=== PATIENT | male | born 1970 | race Hispanic/Latino ===

== ENCOUNTER 2017-08-01 08:36 | Day surgery (SDC) | payer BC ==
[~2017-08-01] VITALS: Ht 177.8 cm; Wt 98.3 kg
[~2017-08-01 08:36] MED LIST: CYAN500 PO; DICY10 PO; FOLI1TAB15 PO; FURO20TA4 PO; LACT10SO8 PO; OMEP40CA37 PO; PROP20TA7 PO; RIFA550T PO; SITA50TA PO; SODIUM CHLORIDE 0.9% 1000ML 1,000 ML IV ONE; SPIR50TA5 PO
[2017-08-01 09:07] VITALS: BP 87/44
[2017-08-01] MEDS ORDERED: PROPOFOL 10 MG/ML 20ML VIAL IV ONE (10:12)
[2017-08-01] MEDS ORDERED: FENTANYL CITRATE PF 50 MCG/1 ML 2ML VIAL ONE (10:13)
[2017-08-01 10:20] VITALS: BP 91/42
== END 2017-08-01 10:50 | disposition home or self-care (01) ==
LOC: DAH 08:36 → ENDO 08:36
PROVIDERS: ATTEND Internal Medicine
DX: I85.00 Esophageal varices without bleeding (principal); K31.89 Other diseases of stomach and duodenum; K29.50 Unspecified chronic gastritis without bleeding; Z79.84 Long term (current) use of oral hypoglycemic drugs; Z79.899 Other long term (current) drug therapy; K74.60 Unspecified cirrhosis of liver; I10 Essential (primary) hypertension; E11.9 Type 2 diabetes mellitus without complications; Z82.49 Family history of ischemic heart disease and other diseases of the circulatory system
CPT/HCPCS: 43239; 82948 ×2; A4606; J2704; J3010; J7030 ×2

== ENCOUNTER 2017-11-30 10:49 | Emergency (ER) | payer BC ==
[~2017-11-30 10:49] MED LIST changes: -SODIUM CHLORIDE 0.9% 1000ML 1,000 ML IV ONE
[2017-11-30] MEDS ORDERED: IBUPROFEN 600 MG TABLET ONE (11:16)
== END 2017-11-30 12:27 | disposition home or self-care (01) ==
LOC: EDH 10:49
DX: B34.9 Viral infection, unspecified (principal); E11.9 Type 2 diabetes mellitus without complications; I10 Essential (primary) hypertension; K74.60 Unspecified cirrhosis of liver; Z98.890 Other specified postprocedural states; Z87.891 Personal history of nicotine dependence
CPT/HCPCS: 87804

== ENCOUNTER 2018-03-16 16:42 | Emergency (ER) | payer BC ==
[2018-03-16 17:15] LABS: BASOPHILS % (AUTO) 0.6 % (0.0-5.0); EOSINOPHILS % (AUTO) 3.8 % (0.0-8.0); HEMATOCRIT 35.2 % (42-54); LYMPHOCYTES % (AUTO) 20.3 % (21.0-51.0); MEAN CORPUSCULAR HEMOGLOBIN 30.9 pg (27.0-33.0); MEAN CORPUSCULAR HGB CONC 34.5 g/dL (32.0-36.0); MEAN CORPUSCULAR VOLUME 89.5 fL (79-99); MONOCYTES % (AUTO) 8.6 % (3.0-13.0); NEUTROPHILS % (AUTO) 66.7 % (40.0-77.0); PLATELET COUNT (AUTO) 45 K/uL (130-400); RED BLOOD CELL COUNT(AUTO) 3.93 MIL/uL (4.50-6.20)
[2018-03-16 17:16] LABS: APPEARANCE,URINE Clear (CLEAR); BILIRUBIN,URINE Negative (NEGATIVE); COLOR,URINE Yellow (YELLOW); GLUCOSE, URINE (UA) 500 mg/dL (NEGATIVE); KETONES,URINE Negative (NEGATIVE); LEUKOCYTE ESTERASE ,URINE Negative (NEGATIVE); NITRATE,URINE Negative (NEGATIVE); OCCULT BLOOD,URINE Negative (NEGATIVE); PH,URINE 5.5 (5.0-8.0); PROTEIN,URINE Negative (NEGATIVE); UROBILINOGEN,URINE 0.2 mg/dL (0.2-1.0)
[2018-03-16 17:24] LABS: AMPHET/METH SCREEN,URINE NEGATIVE (NEGATIVE); BARBITURATE SCREEN, URINE NEGATIVE (NEGATIVE); BENZODIAZEPINES SCREEN,URINE NEGATIVE (NEGATIVE); CANNABINOID SCREEN,URINE NEGATIVE (NEGATIVE); COCAINE SCREEN,URINE NEGATIVE (NEGATIVE); OPIATE SCREEN,URINE NEGATIVE (NEGATIVE); PHENCYCLIDINE SCREEN,URINE NEGATIVE (NEGATIVE)
[2018-03-16 17:25] LABS: CREATININE 1.1 mg/dL (0.5-1.5); POTASSIUM 3.9 mmol/L (3.5-5.1)
[2018-03-16 17:28] LABS: INR 1.11 (0.85-1.15); PARTIAL THROMBOPLASTIN TIME 32.2 SEC (26.3-35.5); PROTHROMBIN TIME 11.6 SEC (9.6-11.6)
[2018-03-16 17:32] LABS: ALBUMIN 2.4 g/dL (3.5-5.0); BILIRUBIN,TOTAL 1.8 mg/dL (0.2-1.0); TOTAL PROTEIN, SERUM 6.6 g/dL (6.0-8.3)
== END 2018-03-16 19:12 | disposition home or self-care (01) ==
LOC: EDH 16:42
DX: R42 Dizziness and giddiness (principal); R20.2 Paresthesia of skin; E11.9 Type 2 diabetes mellitus without complications; I10 Essential (primary) hypertension; Z87.891 Personal history of nicotine dependence; Z85.05 Personal history of malignant neoplasm of liver
CPT/HCPCS: 36415; 71045; 80053; 80305; 81003; 82550; 85025; 85610; 85730; 93005

== ENCOUNTER 2018-05-04 01:14 | Emergency (ER) | payer BC ==
[2018-05-04 01:53] LABS: BASOPHILS % (AUTO) 0.5 % (0.0-5.0); EOSINOPHILS % (AUTO) 4.6 % (0.0-8.0); HEMATOCRIT 36.4 % (42-54); LYMPHOCYTES % (AUTO) 18.4 % (21.0-51.0); MEAN CORPUSCULAR HEMOGLOBIN 31.1 pg (27.0-33.0); MONOCYTES % (AUTO) 10.3 % (3.0-13.0); NEUTROPHILS % (AUTO) 66.2 % (40.0-77.0); NUCLEATED RED BLOOD CELLS 0.1 % (0.0-0.19); PLATELET COUNT (AUTO) 72 K/uL (130-400); RED BLOOD CELL COUNT(AUTO) 4.09 MIL/uL (4.50-6.20); RED CELL DISTRIBUTION WIDTH 13.3 % (11.0-15.5); WHITE BLOOD COUNT (AUTO) 4.3 K/uL (4.8-10.8)
[2018-05-04 01:55] LABS: APPEARANCE,URINE Clear (CLEAR); BILIRUBIN,URINE Negative (NEGATIVE); COLOR,URINE Yellow (YELLOW); GLUCOSE, URINE (UA) >=1000 mg/dL (NEGATIVE); KETONES,URINE Negative (NEGATIVE); LEUKOCYTE ESTERASE ,URINE Negative (NEGATIVE); NITRATE,URINE Negative (NEGATIVE); OCCULT BLOOD,URINE Negative (NEGATIVE); PH,URINE 6.5 (5.0-8.0); PROTEIN,URINE Negative (NEGATIVE); UROBILINOGEN,URINE 0.2 mg/dL (0.2-1.0)
[2018-05-04] MEDS ORDERED: INSULIN HUMULIN R 100 UNIT/ML 3ML ONE ×2 (01:58→03:04)
[2018-05-04 02:00] LABS: BACTERIA,URINE None Seen /HPF (None Seen); RBC,URINE None Seen /HPF (0-1); SQUAMOUS EPITHELIAL CELL,UR Rare /HPF (0-2); WBC,URINE None Seen /HPF (0-1); YEAST,URINE BUDDING None Seen /HPF (None Seen)
[2018-05-04 02:08] LABS: ALBUMIN 2.4 g/dL (3.5-5.0); BILIRUBIN,TOTAL 1.5 mg/dL (0.2-1.0); CREATININE 1.1 mg/dL (0.5-1.5); POTASSIUM 4.4 mmol/L (3.5-5.1); TOTAL PROTEIN, SERUM 6.8 g/dL (6.0-8.3)
== END 2018-05-04 02:31 | disposition home or self-care (01) ==
LOC: EDH 01:14
DX: E11.65 Type 2 diabetes mellitus with hyperglycemia (principal); K74.60 Unspecified cirrhosis of liver; I10 Essential (primary) hypertension; Z85.05 Personal history of malignant neoplasm of liver
CPT/HCPCS: 36415; 80053; 81001; 82948 ×2; 85025; 96361; 96374; 96376; 99285; J1815 ×2

== ENCOUNTER → 2018-05-14 | Outpatient (CLI) | payer BC | END | disposition home or self-care (01) | LOC: RAH 08:51 | PROVIDERS: ATTEND Internal Medicine Gastroenterology | DX: K74.60 Unspecified cirrhosis of liver (principal) | CPT/HCPCS: 76700; 93975 ==

== ENCOUNTER 2018-06-12 19:00 | Emergency (ER) | payer BC ==
[2018-06-12 19:36] LABS: APPEARANCE,URINE Clear (CLEAR); BILIRUBIN,URINE Large (NEGATIVE); GLUCOSE, URINE (UA) TRACE mg/dL (NEGATIVE); KETONES,URINE Negative (NEGATIVE); LEUKOCYTE ESTERASE ,URINE Small (NEGATIVE); NITRATE,URINE Positive (NEGATIVE); OCCULT BLOOD,URINE Negative (NEGATIVE); PH,URINE 5.5 (5.0-8.0); PROTEIN,URINE Negative (NEGATIVE)
[2018-06-12 19:37] LABS: COLOR,URINE AMBER (YELLOW)
[2018-06-12 19:41] LABS: EOSINOPHILS % (AUTO) 3.2 % (0.0-8.0); HEMATOCRIT 36.1 % (42-54); LYMPHOCYTES % (AUTO) 14.9 % (21.0-51.0); MEAN CORPUSCULAR HEMOGLOBIN 31.2 pg (27.0-33.0); MEAN CORPUSCULAR HGB CONC 34.6 g/dL (32.0-36.0); MEAN CORPUSCULAR VOLUME 90.1 fL (79-99); MONOCYTES % (AUTO) 11.5 % (3.0-13.0); NEUTROPHILS % (AUTO) 69.4 % (40.0-77.0); NUCLEATED RED BLOOD CELLS 0.1 % (0.0-0.19); PLATELET COUNT (AUTO) 49 K/uL (130-400); RED CELL DISTRIBUTION WIDTH 15.1 % (11.0-15.5); WHITE BLOOD COUNT (AUTO) 5.4 K/uL (4.8-10.8)
[2018-06-12 19:55] LABS: INR 1.15 (0.85-1.15); PARTIAL THROMBOPLASTIN TIME 30.1 SEC (26.3-35.5)
[2018-06-12 19:57] LABS: BACTERIA,URINE Few /HPF (None Seen); RBC,URINE None Seen /HPF (0-1); SQUAMOUS EPITHELIAL CELL,UR None Seen /HPF (0-2); WBC,URINE 0-1 /HPF (0-1)
[2018-06-12] MEDS ORDERED: ONDANSETRON HCL 4 MG/2 ML VIAL ONE (20:18)
[2018-06-12] MEDS ORDERED: MAG HYDROX/AL HYDROX/SIMETH ES 30 ML SUSP UDCUP ONE (20:18)
[2018-06-12] MEDS ORDERED: MORPHINE SULFATE 2 MG/ML 1ML SYG ONE (20:18)
[2018-06-12] MEDS ORDERED: LIDOCAINE HCL 2% VISCOUS 15 ML UDCUP ONE (20:18)
[2018-06-12] MEDS ORDERED: FAMOTIDINE/PF 20 MG/2 ML VIAL IV ONE (20:19)
[2018-06-12 20:25] LABS: B-TYPE NATRIURETIC PEPTIDE 25 pg/mL (0-100)
[2018-06-12 20:29] LABS: CREATININE 0.8 mg/dL (0.5-1.5)
[2018-06-12 20:34] LABS: BILIRUBIN,TOTAL 11.7 mg/dL (0.2-1.0); TOTAL PROTEIN, SERUM 5.6 g/dL (6.0-8.3)
[2018-06-12] MEDS ORDERED: CEFTRIAXONE SODIUM 1 GM ONE (21:05)
== END 2018-06-12 21:28 | disposition home or self-care (01) ==
LOC: EDH 19:00
DX: K29.00 Acute gastritis without bleeding (principal); N39.0 Urinary tract infection, site not specified; E11.9 Type 2 diabetes mellitus without complications; I10 Essential (primary) hypertension; Z87.891 Personal history of nicotine dependence; Z85.05 Personal history of malignant neoplasm of liver
CPT/HCPCS: 36415; 71045; 80053; 81001; 83605; 83690; 83880; 84484; 85025; 85610; 85730; 93005; 96361; 96374; 96375; 99285; J0696; J2405; J3490

== ENCOUNTER 2018-06-17 11:40 | Emergency (ER) | payer BC ==
[2018-06-17 12:53] LABS: BASOPHILS % (AUTO) 0.7 % (0.0-5.0); EOSINOPHILS % (AUTO) 3.8 % (0.0-8.0); HEMATOCRIT 37.8 % (42-54); LYMPHOCYTES % (AUTO) 11.2 % (21.0-51.0); MEAN CORPUSCULAR HGB CONC 35.3 g/dL (32.0-36.0); MEAN CORPUSCULAR VOLUME 90.8 fL (79-99); NEUTROPHILS % (AUTO) 77.3 % (40.0-77.0); PLATELET COUNT (AUTO) 45 K/uL (130-400); RED BLOOD CELL COUNT(AUTO) 4.16 MIL/uL (4.50-6.20); RED CELL DISTRIBUTION WIDTH 15.9 % (11.0-15.5); WHITE BLOOD COUNT (AUTO) 5.1 K/uL (4.8-10.8)
[2018-06-17 12:59] LABS: CREATININE 0.8 mg/dL (0.5-1.5); POTASSIUM 4.1 mmol/L (3.5-5.1)
[2018-06-17 13:14] LABS: ALBUMIN 2.4 g/dL (3.5-5.0); TOTAL PROTEIN, SERUM 6.6 g/dL (6.0-8.3)
[2018-06-17 13:16] LABS: BILIRUBIN,TOTAL 21.2 mg/dL (0.2-1.0)
[2018-06-17 13:17] LABS: APPEARANCE,URINE CLEAR (CLEAR); BILIRUBIN,URINE LARGE (NEGATIVE); COLOR,URINE BROWN (YELLOW); GLUCOSE, URINE (UA) 100 mg/dL (NEGATIVE); KETONES,URINE 5 mg/dL (NEGATIVE); LEUKOCYTE ESTERASE ,URINE TRACE (NEGATIVE); NITRATE,URINE NEGATIVE (NEGATIVE); OCCULT BLOOD,URINE TRACE-LYSED (NEGATIVE); PH,URINE 6.5 (5.0-8.0); PROTEIN,URINE 30 mg/dL (NEGATIVE)
[2018-06-17 13:25] LABS: AMPHET/METH SCREEN,URINE NEGATIVE (NEGATIVE); BARBITURATE SCREEN, URINE NEGATIVE (NEGATIVE); BENZODIAZEPINES SCREEN,URINE NEGATIVE (NEGATIVE); CANNABINOID SCREEN,URINE NEGATIVE (NEGATIVE); COCAINE SCREEN,URINE NEGATIVE (NEGATIVE); OPIATE SCREEN,URINE NEGATIVE (NEGATIVE); PHENCYCLIDINE SCREEN,URINE NEGATIVE (NEGATIVE)
[2018-06-17 13:28] LABS: BACTERIA,URINE Few /HPF (None Seen); COARSE GRANULAR CASTS,URINE 0-2 /LPF (None Seen); HYALINE CASTS, URINE 0-1 /LPF (0-1 /LPF); MUCUS,URINE Moderate LPF (None Seen); RBC,URINE 0-1 /HPF (0-1); WBC,URINE 0-1 /HPF (0-1)
[2018-06-17 15:30] LABS: INR 1.15 (0.85-1.15); PARTIAL THROMBOPLASTIN TIME 34.8 SEC (26.3-35.5)
== END 2018-06-17 18:09 | disposition home or self-care (01) ==
LOC: EDH 11:40
DX: C22.0 Liver cell carcinoma (principal); E80.6 Other disorders of bilirubin metabolism; E11.9 Type 2 diabetes mellitus without complications; I10 Essential (primary) hypertension
CPT/HCPCS: 36415; 80053; 80305; 81001; 82140; 83690; 85025; 85610; 85730; 87040; 87088

== ENCOUNTER 2018-08-22 20:03 | Emergency (ER) | payer BC, OTHER ==
[~2018-08-22 20:03] MED LIST changes: -CYAN500 PO; +CYAN500T4 PO
[2018-08-22 20:41] LABS: APPEARANCE,URINE Clear (CLEAR); BILIRUBIN,URINE Small (NEGATIVE); COLOR,URINE Dark Yellow (YELLOW); GLUCOSE, URINE (UA) Negative (NEGATIVE); KETONES,URINE Trace mg/dL (NEGATIVE); LEUKOCYTE ESTERASE ,URINE Trace (NEGATIVE); NITRATE,URINE Negative (NEGATIVE); OCCULT BLOOD,URINE Negative (NEGATIVE); PROTEIN,URINE POS 1+ mg/dL (NEGATIVE)
[2018-08-22 20:41] LABS: BASOPHILS % (AUTO) 0.9 % (0.0-5.0); HEMATOCRIT 32.6 % (42-54); LYMPHOCYTES % (AUTO) 17.7 % (21.0-51.0); MEAN CORPUSCULAR HEMOGLOBIN 28.8 pg (27.0-33.0); MEAN CORPUSCULAR HGB CONC 33.2 g/dL (32.0-36.0); MEAN CORPUSCULAR VOLUME 86.9 fL (79-99); MONOCYTES % (AUTO) 5.2 % (3.0-13.0); NEUTROPHILS % (AUTO) 74.2 % (40.0-77.0); NUCLEATED RED BLOOD CELLS 0.1 % (0.0-0.19); PLATELET COUNT (AUTO) 164 K/uL (130-400); RED BLOOD CELL COUNT(AUTO) 3.75 MIL/uL (4.50-6.20); RED CELL DISTRIBUTION WIDTH 15.8 % (11.0-15.5)
[2018-08-22 21:01] LABS: BACTERIA,URINE Rare /HPF (None Seen); RBC,URINE None Seen /HPF (0-1); WBC,URINE 0-1 /HPF (0-1)
[2018-08-22 21:02] LABS: SQUAMOUS EPITHELIAL CELL,UR None Seen /HPF (0-2)
[2018-08-22 21:08] LABS: CREATININE 2.8 mg/dL (0.5-1.5); INR 0.93 (0.85-1.15); PARTIAL THROMBOPLASTIN TIME 28.8 SEC (26.3-35.5); POTASSIUM 5.5 mmol/L (3.5-5.1); PROTHROMBIN TIME 9.8 SEC (9.6-11.6)
[2018-08-22 21:12] LABS: ALBUMIN 4.2 g/dL (3.5-5.0); BILIRUBIN,DIRECT 0.3 mg/dL (0.0-0.3); BILIRUBIN,TOTAL 0.6 mg/dL (0.2-1.0); TOTAL PROTEIN, SERUM 7.5 g/dL (6.0-8.3)
== END 2018-08-23 02:08 | disposition home or self-care (01) ==
LOC: EDH 20:03
DX: N28.9 Disorder of kidney and ureter, unspecified (principal); Z94.4 Liver transplant status; E11.9 Type 2 diabetes mellitus without complications; I10 Essential (primary) hypertension; Z85.05 Personal history of malignant neoplasm of liver; Z87.891 Personal history of nicotine dependence
CPT/HCPCS: 36415; 80053; 80076; 81001; 85025; 85610; 85730; 93005

== ENCOUNTER 2019-04-01 14:01 | Emergency (ER) | payer MEDICARE, BC ==
[~2019-04-01 14:01] MED LIST changes: -CYAN500T4 PO; +CYAN500T63 PO; +LACT10SO62 PO; -LACT10SO8 PO; +OMEP40CA13 PO; -OMEP40CA37 PO
[2019-04-01] MEDS ORDERED: SODIUM CHLORIDE 0.9% 1000ML 1,000 ML IV ONE (14:32)
[2019-04-01 15:03] LABS: BASOPHILS % (AUTO) 0.2 % (0.0-5.0); HEMATOCRIT 32.7 % (42-54); LYMPHOCYTES % (AUTO) 25.4 % (21.0-51.0); MEAN CORPUSCULAR HEMOGLOBIN 25.5 pg (27.0-33.0); MEAN CORPUSCULAR HGB CONC 32.7 g/dL (32.0-36.0); MONOCYTES % (AUTO) 4.6 % (3.0-13.0); NEUTROPHILS % (AUTO) 69.3 % (40.0-77.0); PLATELET COUNT (AUTO) 101 K/uL (130-400); RED BLOOD CELL COUNT(AUTO) 4.19 MIL/uL (4.50-6.20); RED CELL DISTRIBUTION WIDTH 14.5 % (11.0-15.5); WHITE BLOOD COUNT (AUTO) 6.1 K/uL (4.8-10.8)
[2019-04-01 15:18] LABS: CREATININE 1.6 mg/dL (0.5-1.5); POTASSIUM 4.7 mmol/L (3.5-5.1)
[2019-04-01 15:22] LABS: ALBUMIN 3.7 g/dL (3.5-5.0); BILIRUBIN,DIRECT 0.1 mg/dL (0.0-0.3); BILIRUBIN,TOTAL 0.4 mg/dL (0.2-1.0); TOTAL PROTEIN, SERUM 7.1 g/dL (6.0-8.3)
[2019-04-01 15:46] LABS: B-TYPE NATRIURETIC PEPTIDE 12 pg/mL (0-100)
== END 2019-04-01 16:24 | disposition home or self-care (01) ==
LOC: EDH 14:01
DX: M62.81 Muscle weakness (generalized) (principal); E11.9 Type 2 diabetes mellitus without complications; Z87.891 Personal history of nicotine dependence
CPT/HCPCS: 36415; 80048; 80076; 82550; 83880; 84484; 85025; 93005; 99284; J7030

== ENCOUNTER 2020-06-22 17:42 | Emergency (ER) | payer BC, MEDICARE ==
[~2020-06-22 17:42] MED LIST changes: -CYAN500T63 PO; +CYAN500T9 PO
[2020-06-22] MEDS ORDERED: L.E.T. GEL 4%/0.5%/0.18% 3ML 3 ML/SYR SYG TP ONE (18:14)
[2020-06-22] MEDS ORDERED: ASPIRIN 325 MG TABLET ONE (18:15)
[2020-06-22 18:35] LABS: BASOPHILS % (AUTO) 0.6 % (0.0-5.0); HEMATOCRIT 37.5 % (42-54); LYMPHOCYTES % (AUTO) 32.6 % (21.0-51.0); MEAN CORPUSCULAR HEMOGLOBIN 23.6 pg (27.0-33.0); MEAN CORPUSCULAR HGB CONC 30.9 g/dL (32.0-36.0); MEAN CORPUSCULAR VOLUME 76.4 fL (79-99); MONOCYTES % (AUTO) 10.3 % (3.0-13.0); NEUTROPHILS % (AUTO) 52.1 % (40.0-77.0); PLATELET COUNT (AUTO) 147 K/uL (130-400); RED BLOOD CELL COUNT(AUTO) 4.91 MIL/uL (4.50-6.20); RED CELL DISTRIBUTION WIDTH 14.6 % (11.0-15.5); WHITE BLOOD COUNT (AUTO) 5.2 K/uL (4.8-10.8)
[2020-06-22 18:46] LABS: CREATININE 2.1 mg/dL (0.5-1.5); POTASSIUM 3.9 mmol/L (3.5-5.1)
[2020-06-22 18:50] LABS: ALBUMIN 3.5 g/dL (3.5-5.0); BILIRUBIN,TOTAL 0.3 mg/dL (0.2-1.0); TOTAL PROTEIN, SERUM 7.5 g/dL (6.0-8.3)
[2020-06-22 18:53] LABS: INR 1.04 (0.85-1.15); PARTIAL THROMBOPLASTIN TIME 24.3 SEC (26.3-35.5); PROTHROMBIN TIME 10.8 SEC (9.6-11.6)
== END 2020-06-22 19:50 | disposition home or self-care (01) ==
LOC: EDH 17:42
DX: M94.0 Chondrocostal junction syndrome [Tietze] (principal); R07.89 Other chest pain; E11.9 Type 2 diabetes mellitus without complications; Z87.891 Personal history of nicotine dependence
CPT/HCPCS: 36415; 71250; 80053; 82550; 84484; 85025; 85610; 85730; 93005

== ENCOUNTER 2022-04-23 23:49 | Emergency (ER) | payer MEDICARE ==
[~2022-04-23] VITALS: Ht 177.8 cm; Wt 93.0 kg
[~2022-04-23 23:49] MED LIST changes: -LACT10SO62 PO; +LACT10SO95 PO; -OMEP40CA13 PO; +OMEP40CA21 PO
[2022-04-24 00:24] LABS: BASOPHILS % (AUTO) 0.6 % (0.0-5.0); EOSINOPHILS % (AUTO) 2.6 % (0.0-8.0); HEMATOCRIT 38.9 % (42-54); LYMPHOCYTES % (AUTO) 28.5 % (21.0-51.0); MEAN CORPUSCULAR HEMOGLOBIN 25.7 pg (27.0-33.0); MEAN CORPUSCULAR HGB CONC 32.6 g/dL (32.0-36.0); MEAN CORPUSCULAR VOLUME 78.7 fL (79-99); MONOCYTES % (AUTO) 9.5 % (3.0-13.0); PLATELET COUNT (AUTO) 170 K/uL (130-400); RED BLOOD CELL COUNT(AUTO) 4.94 MIL/uL (4.50-6.20); RED CELL DISTRIBUTION WIDTH 14.1 % (11.0-15.5); WHITE BLOOD COUNT (AUTO) 6.5 K/uL (4.8-10.8)
[2022-04-24 00:33] LABS: CREATININE 1.7 mg/dL (0.5-1.5); POTASSIUM 4.1 mmol/L (3.5-5.1)
[2022-04-24 00:38] LABS: ALBUMIN 3.4 g/dL (3.5-5.0); TOTAL PROTEIN, SERUM 7.2 g/dL (6.0-8.3)
[2022-04-24] MEDS ORDERED: 0.9% NACL 500ML IV.SOLN 500 ML IV ONE (01:00)
[2022-04-24 01:03] LABS: APPEARANCE,URINE CLEAR (CLEAR); BILIRUBIN,URINE NEGATIVE (NEGATIVE); COLOR,URINE LIGHT-YELLOW (YELLOW); GLUCOSE, URINE (UA) NEGATIVE (NEGATIVE); KETONES,URINE NEGATIVE (NEGATIVE); LEUKOCYTE ESTERASE ,URINE NEGATIVE Leu/uL (NEGATIVE); NITRATE,URINE NEGATIVE (NEGATIVE); OCCULT BLOOD,URINE NEGATIVE (NEGATIVE); PH,URINE 5.5 (5.0-8.0); PROTEIN,URINE 100 mg/dL (NEGATIVE); UROBILINOGEN,URINE 0.2 mg/dL (0.2-1.0)
[2022-04-24 01:09] LABS: RBC,URINE 0-1 /HPF (0-1); SQUAMOUS EPITHELIAL CELL,UR RARE /HPF (0-2); WBC,URINE 0-1 /HPF (0-1)
[2022-04-24 02:28] VITALS: BP 120/63
== END 2022-04-24 02:30 | disposition home or self-care (01) ==
LOC: EDH 23:49
DX: R53.1 Weakness (principal); M54.50 Low back pain, unspecified; I10 Essential (primary) hypertension; E78.5 Hyperlipidemia, unspecified; E11.9 Type 2 diabetes mellitus without complications; Z79.899 Other long term (current) drug therapy
CPT/HCPCS: 99283; 80053; 85025; 81001; 36415; J7040

== ENCOUNTER 2022-08-01 23:26 | Emergency (ER) | payer MEDICARE ==
[~2022-08-01] VITALS: Ht 177.8 cm; Wt 90.3 kg
[2022-08-02 01:38] LABS: BASOPHILS % (AUTO) 0.4 % (0.0-5.0); EOSINOPHILS % (AUTO) 2.5 % (0.0-8.0); HEMATOCRIT 43.8 % (42-54); LYMPHOCYTES % (AUTO) 35.6 % (21.0-51.0); MEAN CORPUSCULAR HEMOGLOBIN 25.3 pg (27.0-33.0); MEAN CORPUSCULAR HGB CONC 32.2 g/dL (32.0-36.0); MEAN CORPUSCULAR VOLUME 78.6 fL (79-99); MONOCYTES % (AUTO) 8.2 % (3.0-13.0); NEUTROPHILS % (AUTO) 52.8 % (40.0-77.0); PLATELET COUNT (AUTO) 201 K/uL (130-400); RED BLOOD CELL COUNT(AUTO) 5.57 MIL/uL (4.50-6.20); WHITE BLOOD COUNT (AUTO) 7.3 K/uL (4.8-10.8)
[2022-08-02 01:39] LABS: APPEARANCE,URINE CLEAR (CLEAR); BILIRUBIN,URINE NEGATIVE (NEGATIVE); COLOR,URINE COLORLESS (YELLOW); GLUCOSE, URINE (UA) NEGATIVE (NEGATIVE); KETONES,URINE NEGATIVE (NEGATIVE); LEUKOCYTE ESTERASE ,URINE NEGATIVE Leu/uL (NEGATIVE); NITRATE,URINE NEGATIVE (NEGATIVE); OCCULT BLOOD,URINE NEGATIVE (NEGATIVE); PROTEIN,URINE 30 mg/dL (NEGATIVE); UROBILINOGEN,URINE 0.2 mg/dL (0.2-1.0)
[2022-08-02 01:47] LABS: POTASSIUM 4.6 mmol/L (3.5-5.1)
[2022-08-02 01:53] LABS: INR 0.93 (0.85-1.15); PROTHROMBIN TIME 10.2 SEC (9.6-11.6)
[2022-08-02 01:54] LABS: ALBUMIN 4.4 g/dL (3.5-5.0); PARTIAL THROMBOPLASTIN TIME 30.1 SEC (26.3-35.5); TOTAL PROTEIN, SERUM 9.1 g/dL (6.0-8.3)
[2022-08-02 03:50] VITALS: BP 135/78
== END 2022-08-02 04:04 | disposition home or self-care (01) ==
LOC: EDH 23:26
DX: I10 Essential (primary) hypertension (principal); I95.9 Hypotension, unspecified; E11.9 Type 2 diabetes mellitus without complications; E78.00 Pure hypercholesterolemia, unspecified; Z79.899 Other long term (current) drug therapy; Z98.890 Other specified postprocedural states
CPT/HCPCS: 36415; 80053; 81003; 84484; 85025; 85610; 85730; 93005

== ENCOUNTER 2023-08-04 19:34 | Emergency (ER) | payer MEDICARE ==
[~2023-08-04] VITALS: Ht 177.8 cm; Wt 87.5 kg
[2023-08-04 20:27] LABS: BASOPHILS # (AUTO) 0.04 K/uL (0.00-0.20); BASOPHILS % (AUTO) 0.6 % (0.0-5.0); EOSINOPHILS # (AUTO) 0.15 K/uL (0.00-0.70); EOSINOPHILS % (AUTO) 2.4 % (0.0-8.0); HEMATOCRIT 37.6 % (42-54); IMMATURE GRANULOCYTE ABSOLUTE 0.03 K/uL (0-1); LYMPHOCYTES # (AUTO) 1.9 K/uL (1.0-4.8); MEAN CORPUSCULAR HGB CONC 33.8 g/dL (32.0-36.0); MEAN CORPUSCULAR VOLUME 79.8 fL (79-99); MONOCYTES # (AUTO) 0.5 K/uL (0.1-1.0); MONOCYTES % (AUTO) 8.4 % (3.0-13.0); NEUTROPHILS # (AUTO) 3.6 K/uL (1.8-7.7); NEUTROPHILS % (AUTO) 58.1 % (40.0-77.0); PLATELET COUNT (AUTO) 185 K/uL (130-400); RED BLOOD CELL COUNT(AUTO) 4.71 MIL/uL (4.50-6.20); RED CELL DISTRIBUTION WIDTH 13.4 % (11.0-15.5); WHITE BLOOD COUNT (AUTO) 6.2 K/uL (4.8-10.8)
[2023-08-04] MEDS: 0.9%NACL 1000ML 1,000 ML IV ONE (20:32)
[2023-08-04 20:38] LABS: CREATININE 2.4 mg/dL (0.5-1.3); POTASSIUM 4.6 mmol/L (3.5-5.1)
[2023-08-04 20:43] LABS: ALBUMIN 3.6 g/dL (3.5-5.0); BILIRUBIN,TOTAL 0.3 mg/dL (0.2-1.0); TOTAL PROTEIN, SERUM 7.4 g/dL (6.0-8.3)
[2023-08-04] MEDS: ACETAMINOPHEN 500 MG TABLET PO STA (20:45)
[2023-08-04] MEDS: METOCLOPRAMIDE 10 MG/2 ML VIAL IVP STA (20:45)
[2023-08-04 22:05] LABS: APPEARANCE,URINE CLEAR (CLEAR); BILIRUBIN,URINE NEGATIVE (NEGATIVE); COLOR,URINE LIGHT-YELLOW (YELLOW); GLUCOSE, URINE (UA) NEGATIVE (NEGATIVE); KETONES,URINE NEGATIVE (NEGATIVE); LEUKOCYTE ESTERASE ,URINE NEGATIVE Leu/uL (NEGATIVE); NITRATE,URINE NEGATIVE (NEGATIVE); OCCULT BLOOD,URINE NEGATIVE (NEGATIVE); PROTEIN,URINE NEGATIVE (NEGATIVE); UROBILINOGEN,URINE 0.2 mg/dL (0.2-1.0)
[2023-08-04 22:12] LABS: ADD UA MICROSCOPIC NO
[2023-08-04 23:01] VITALS: BP 109/71; PULSE 77; RESP 18; O2SAT 98
== END 2023-08-04 23:02 | disposition home or self-care (01) ==
LOC: EDH 19:34
DX: R51.9 Headache, unspecified (principal); E11.9 Type 2 diabetes mellitus without complications; E78.00 Pure hypercholesterolemia, unspecified; I10 Essential (primary) hypertension
CPT/HCPCS: 99285; 96374; 70450; 96361; 80053; 85025; 81003; 36415; J7030; J2765